=== PATIENT | male | born 1985 | race Caucasian/White ===

== ENCOUNTER 2017-09-15 23:58 | Emergency (ER) | payer OTHER ==
[~2017-09-15] VITALS: Ht 170.2 cm; Wt 108.4 kg
[2017-09-16] MEDS ORDERED: CIPRODEX OTIC7.5 ML BOTH EARS (00:45)
[2017-09-16] MEDS ORDERED: AUGMENTIN875 MG PO (00:45)
[2017-09-16] MEDS ORDERED: NORCO 5/3251 TABLET PO (00:45)
[2017-09-16 00:57] VITALS: BP 172/112
== END 2017-09-16 00:58 | disposition home or self-care (01) ==
LOC: EXP 23:58 → EME 23:58 → EXP 09-16 00:58
DX: H66.93 Otitis media, unspecified, bilateral (principal); H60.92 Unspecified otitis externa, left ear; J02.9 Acute pharyngitis, unspecified
CPT/HCPCS: 99281; 99284

== ENCOUNTER 2017-09-24 00:26 | Emergency (ER) | payer OTHER ==
[~2017-09-24] VITALS: Ht 172.7 cm; Wt 107.5 kg
[~2017-09-24 00:26] MED LIST: AUGMENTIN875 MG PO; CIPRODEX OTIC7.5 ML BOTH EARS; NORCO 5/3251 TABLET PO
[2017-09-24] MEDS ORDERED: PREDNISONE10 MG PO (01:25)
[2017-09-24 01:32] VITALS: BP 168/112
== END 2017-09-24 01:34 | disposition home or self-care (01) ==
LOC: EXP 00:26 → EME 00:26 → EXP 01:34
DX: G51.0 Bell's palsy (principal); R51 Headache; I10 Essential (primary) hypertension; H92.02 Otalgia, left ear
CPT/HCPCS: 99281; 99284; J7512